=== PATIENT | female | born 1985 | race Caucasian/White ===

== ENCOUNTER 2023-08-21 16:38 | Emergency (ER) | payer BC, SELFPAY ==
[2023-08-21 16:47] VITALS: BP 117/76; PULSE 72; RESP 12; TEMP 36.8; O2SAT 100; BMI 35.0
--- NOTE | 2023-08-21 18:08 | ED.GENADULT ---
HPI - General Adult General Time Seen by Provider: 18:08 Date Seen: 08/21/23 Chief complaint: Chest Pain Stated complaint: Prolonged Tingling in center chest Time Seen by Provider: 08/21/23 18:07 Source: patient and RN notes reviewed Mode of arrival: ambulatory Limitations: no limitations History of Present Illness HPI narrative: This 38-year-old female is referred to the ER when she could not get a clinic appointment for chest symptoms. For a week or so, she was having intermittent sensation of chest tingling, maybe pressure but not pain. Over the last few days it has been constant. She notices it more if she attempts to talk, with deep breathing, exhaling or singing. She is not noting any sense of shortness of breath. She has maybe had a little cough with it. There has been no fevers or chills. She denies any GI symptoms with it, certainly no noted reflux or heartburn. She states about 10 years ago she had severe heartburn, is not feeling no symptoms now. She is wondering if it could be stress as events are quite stressful for her right now. She has no prior cardiac or respiratory history. She is a nonsmoker, she quit drinking in December, felt like she needed to and has not drink sense. She is feeling a bit more fatigued than usual. No associated fevers or chills with this. There is cancer on her mom's side of the family, she does not know much about her dad side of the family. She is having no difficulty swallowing, no changes with swallowing. Related Data Previous Rx's Medication Instructions Recorded omeprazole 40 mg capsule,delayed 40 mg PO DAILY #14 caps 08/21/23 release Allergies Allergy/AdvReac Type Severity Reaction Status Date / Time amoxicillin Allergy Unknown Rash Verified 08/21/23 16:47 Review of Systems Status of ROS: Reports: 6 or more systems reviewed and unremarkable except as noted in History and below [facility] Social History Smoking Status: Never smoker How often do you have a drink containing alcohol: never AUDIT-C Alcohol total score: 0 Non-prescribed substance use: denies use Exam Const: Vital Signs, click to edit/add: Vital Signs - 24 hr 08/21/23 16:47 08/21/23 19:23 Temperature 98.3 F Pulse Rate 57 L Pulse Rate [Pulse Oximeter] 72 Respiratory Rate 12 14 Blood Pressure 106/75 Blood Pressure [Ri ght Upper Arm] 117/76 Pulse Oximetry 100 99 Oxygen Delivery Me thod Room Air 38-year-old female is alert, interactive, no apparent distress. Ambulatory into the ED of her own accord. Pupils equal round reactive, sclera clear, face atraumatic, symmetrical facial function. Speech is normal, no hoarseness. Neck supple, no cervical adenopathy, no thyromegaly masses or nodules. Lungs are clear, good air entry, no wheezing or crackles. CV regular rate and rhythm, no murmur, normal S1-S2, no S3-S4. She has no reproducible chest wall tenderness. Abdomen is soft, no organomegaly, no rebound or guarding, nontender. Documenting provider has reviewed patient's vital signs: yes Course Course ED Course: Have reviewed with patient that we will do a chest x-ray, labs including troponin. Her EKG is reassuring. Given her symptoms, I am doubtful that this represents any life-threatening event such as acute coronary syndrome, mi a, any respiratory infection. We will checked a chestX-ray and labs, if these are normal, discharge to home for further follow-up. I do wonder about quiescent GERD may be causing some irritation. She is not noting hoarseness or any coughing but could have possible atypical presentation given her history of severe GERD prior. Reevaluation(s) Time of Reevaluation #1: 19:31 Reevaluation #1: Have reviewed with patient that the chest x-ray, EKG and labs are all normal. We did go over that we check troponin, comprehensive metabolic panel, CBC, inflammatory marker with C reactive protein, proBNP. All of these are coming back normal. With her history of severe heartburn, do think it is reasonable to try a course of omeprazole. She is in agreement. At this time, she is stable and appropriate for discharge to home with further outpatient follow-up. Vital Signs Vital signs: Initial Vital Signs Temperature 98.3 F 08/21/23 16:47 Temperature Source Temporal Artery Scan 08/21/23 16:47 Pulse Rate 72 08/21/23 16:47 Pulse Rhythm Regular 08/21/23 16:47 Respiratory Rate 12 08/21/23 16:47 Blood Pressure 117/76 08/21/23 16:47 Blood Pressure Mean 89 08/21/23 16:47 Blood Pressure Position Sitting 08/21/23 16:47 Pulse Oximetry 100 08/21/23 16:47 Oxygen Delivery Method Room Air 08/21/23 16:47 Vital Signs Temperature 98.3 F 08/21/23 16:47 Pulse Rate 72 08/21/23 16:47 Respiratory Rate 12 08/21/23 16:47 Blood Pressure 117/76 08/21/23 16:47 Pulse Oximetry 100 08/21/23 16:47 Oxygen Delivery Method Room Air 08/21/23 16:47 Temperature 98.3 F 08/21/23 16:47 Pulse Rate 57 L 08/21/23 19:23 Respiratory Rate 14 08/21/23 19:23 Blood Pressure 106/75 08/21/23 19:23 Pulse Oximetry 99 08/21/23 19:23 Oxygen Delivery Method Room Air 08/21/23 16:47 Medical Decision Making Lab Data Lab results reviewed: Yes I reviewed the patient's lab results Labs: Lab Results 08/21/23 Range/Units 18:27 WBC 5.97 (4.50-11.00) K/uL RBC 4.39 (4.00-5.20) m/uL Hgb 12.3 (12.0-16.0) gm/dL Hct 36.9 (33.0-51.0) % MCV 84 (80-100) fL MCH 28 (26-34) pg MCHC 33 (32-36) gm/dL RDW Coeff of Thelma 12.7 (11.5-15.5) % Plt Count 334 (140-440) K/uL Neut % (Auto) 58.0 (42.0-72.0) % Lymph % (Auto) 32.0 (20-44) % Calhoun % (Auto) 8.7 (0.0-11.0) % Eos % (Auto) 1.0 (0.0-7.0) % Baso % (Auto) 0.3 (0.0-3.0) % Neut # (Auto) 3.46 (1.7-7.0) K/uL Lymph # (Auto) 1.91 (0.90-2.90) K/uL Calhoun # (Auto) 0.50 (0.00-0.90) K/UL Eos # (Auto) 0.06 (0.00-0.50) K/uL Baso # (Auto) 0.02 (0.00-0.30) K/uL Abs Immat Gran (auto) 0.00 (0.00-0.30) K/uL Imm/Tot Granulo (auto) 0.0 % Sodium 139 (135-149) mmol/L Potassium 3.9 (3.6-5.1) mmol/L Chloride 106 (96-114) mmol/L Carbon Dioxide 23 (20-32) mmol/L Anion Gap 10 (7-15) mEq/L BUN 19 (5-24) mg/dL Creatinine 0.9 (0.5-1.5) mg/dL Estimated Creat Clear 64.58 Estimated GFR 84 ml/min Glucose 86 (60-115) mg/dL Calcium 9.2 (8.4-10.6) mg/dL Magnesium 2.2 (1.5-2.6) mg/dL Total Bilirubin 0.1 (0.1-1.5) mg/dL AST 25 (12-35) U/L ALT 19 (4-35) U/L Alkaline Phosphatase 57 (40-150) U/L Troponin I < 0.01 L (0.01-0.04) ng/mL C-Reactive Protein 0.5 (0.5-1.0) mg/dL NT-Pro-B Natriuret Pep 48 pg/mL Total Protein 7.9 (6.0-8.3) g/dL Albumin 4.7 (3.3-5.0) g/dL Imaging Data Chest x-ray: Attestation: I have reviewed the pertinent imaging results. Radiologist's impression: Patient: MEL MOLINA Facility:?[facility] Patient ID:?[id number] Site Patient ID:?[id number]. Site :?[id number] Study:?XRay Chest 2 views-08/21/2023 6:41:27 PM Ordering Physician:Samantha Che Final Report: INDICATION: Chest tingling. TECHNIQUE: Two-view chest. COMPARISON: None. FINDINGS: Clear lungs. Normal heart size and pulmonary vascularity. Normal included skeleton. IMPRESSION: Negative two-view chest x-ray. Dictated by Jorge Schultz MD @ 08/21/2023 6:42:58 PM (Electronic Signature) ECG Data Attestation: I personally reviewed and interpreted this ECG as follows: (NSR, rate 75 bpm. No acute ischemia or infarct noted. QTc 422ms.) Prior ECG tracings: not available for review Discharge Plan Discharge Clinical Impression: Chest pressure Patient Disposition: Home, Self-Care Condition: Stable Instructions: Noncardiac Chest Pain (ED) Additional Instructions: start omeprazole and try this for 2 weeks, see if it changes any of your symptoms. Do need you to follow up in clinic with your primary care provider. Should you develop worsening of your symptoms, have changes or new symptoms associated with this chest tingling/ pressure, would recommend re-evaluation in the interim. Activity Level: Activity as Tolerated Prescriptions: New omeprazole 40 mg capsule,delayed release(DR/EC) 40 mg PO DAILY Qty: 14 0RF Follow Up/Referrals: Provider,Not a Local [Primary Care Provider] - Stand Alone Forms: [employer] Info Instructions
--- NOTE | 2023-08-21 18:18 | CRLHL7_ITS ---
For Patients: As a result of the Century Cures Act, medical imaging exams and procedure reports are released immediately into your electronic medical record. You may view this report before your referring provider. If you have questions, please contact your health care provider. INDICATION: Chest tingling. TECHNIQUE: Two-view chest. COMPARISON: None. FINDINGS: Clear lungs. Normal heart size and pulmonary vascularity. Normal included skeleton. IMPRESSION: Negative two-view chest x-ray. Dictated by Jorge Schultz MD @ 08/21/2023 6:42:58 PM (Electronically Signed)
[2023-08-21 18:34] LABS: Basophils Absolute Auto 0.02 K/uL (0.00-0.30); Basophils Percent Auto 0.3 % (0.0-3.0); Eosinophils Absolute Auto 0.06 K/uL (0.00-0.50); Hematocrit 36.9 % (33.0-51.0); Hemoglobin* 12.3 gm/dL (12.0-16.0); Lymphocytes Absolute Auto 1.91 K/uL (0.90-2.90); Mean Corpuscular HGB Conc 33 gm/dL (32-36); Mean Corpuscular Hemoglobin 28 pg (26-34); Mean Corpuscular Volume 84 fL (80-100); Monocytes Percent Auto 8.7 % (0.0-11.0); Neutrophils Absolute Auto 3.46 K/uL (1.7-7.0); Platelet Count* 334 K/uL (140-440); RDW Coefficient of Variation % 12.7 % (11.5-15.5); Red Blood Count 4.39 m/uL (4.00-5.20); White Blood Count* 5.97 K/uL (4.50-11.00)
[2023-08-21 18:37] LABS: Slide Review Reflex No
[2023-08-21 18:47] LABS: Albumin* 4.7 g/dL (3.3-5.0); Chloride* 106 mmol/L (96-114)
[2023-08-21 18:48] LABS: Potassium* 3.9 mmol/L (3.6-5.1); Sodium* 139 mmol/L (135-149)
[2023-08-21 18:50] LABS: Bilirubin Total* 0.1 mg/dL (0.1-1.5); Creatinine* 0.9 mg/dL (0.5-1.5); Est. Creatinine Clearance* 64.58; Estimated Glomerular Filt Rate 84 ml/min
[2023-08-21 18:51] LABS: Alanine Aminotransferase* 19 U/L (4-35); Alkaline Phosphatase* 57 U/L (40-150); Anion Gap 10 mEq/L (7-15); Aspartate Amino Transferase* 25 U/L (12-35); Blood Urea Nitrogen* 19 mg/dL (5-24); Calcium* 9.2 mg/dL (8.4-10.6); Carbon Dioxide* 23 mmol/L (20-32); Glucose* 86 mg/dL (60-115); Magnesium* 2.2 mg/dL (1.5-2.6); Total Protein* 7.9 g/dL (6.0-8.3)
[2023-08-21 18:54] LABS: C Reactive Protein* 0.5 mg/dL (0.5-1.0)
[2023-08-21 19:09] LABS: NT Pro B Type NatriureticPept* 48 pg/mL; Troponin I* < 0.01 ng/mL (0.01-0.04)
[2023-08-21 19:23] VITALS: BP 106/75; PULSE 57; RESP 14; O2SAT 99
[2023-08-21 19:44] VITALS: BP 117/76; PULSE 72; RESP 14; TEMP 36.8
== END 2023-08-21 19:45 | disposition home or self-care (01) ==
PROVIDERS: Emergency Provider Family Medicine
DX: R07.89 Other chest pain (principal)
CPT/HCPCS: 36415; 71046; 80053; 83735; 83880; 84484; 85025; 86140; 93005; 99284